=== PATIENT | female | born 1985 | race Caucasian/White ===

== ENCOUNTER 2020-09-30 22:35 | Inpatient (IN) | payer OTHER ==
[~2020-09-30] VITALS: Ht 167.6 cm; Wt 67.1 kg
--- NOTE | 2020-09-30 22:38 | NUR ---
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 Pt aaox4 breathing evenly and unlabored. Pt attached to monitor and pox.MD at bedside. Upon assessment, pt unable to find a comfortable position. Pt given blanket and call light within reach
--- NOTE | 2020-09-30 22:50 | NUR ---
URINE SPECIMEN COLLECTED AND SENT TO LAB.
--- NOTE | 2020-09-30 22:55 | NUR ---
blood obtained and sent to lab
[2020-09-30] MEDS ORDERED: ONDANSETRON HCL/PF 4 MG/2 ML VIAL ONE (22:57)
[2020-09-30] MEDS ORDERED: MORPHINE SULFATE INJ 4 MG/ML DISP.SYRIN ONE (22:58)
[2020-09-30] MEDS ORDERED: IV NS 0.9% 1,000 ML BAG IV ONE (23:00)
[2020-09-30] MEDS ORDERED: MORPHINE SULFATE INJ 2 MG/ML DISP.SYRIN IV ONE (23:00)
[2020-09-30] MEDS ORDERED: ONDANSETRON HCL/PF 4 MG/2 ML VIAL IVP ONE (23:00)
[2020-09-30 23:02] LABS: BASOPHILS # (AUTO) 0.1 K/uL (0.0-0.2); BASOPHILS % (AUTO) 0.7 % (0.0-2.0); EOSINOPHILS % (AUTO) 0.2 % (0.0-6.0); HEMATOCRIT 37 % (33-45); HEMOGLOBIN 12.4 g/dL (11.5-14.8); LYMPHOCYTES % (AUTO) 9.9 % (20.0-44.0); MEAN CORPUSCULAR HGB CONC 33 g/dl (31.0-36.0); MEAN CORPUSCULAR VOLUME 89 fL (82-100); MONOCYTES # (AUTO) 0.7 K/uL (0.1-1.30); MONOCYTES % (AUTO) 3.6 % (2.0-12.0); NEUTROPHILS % (AUTO) 85.6 % (43.0-81.0); PLATELET COUNT (AUTO) 254 K/uL (150-450); RED BLOOD CELL COUNT(AUTO) 4.18 MIL/uL (4.0-5.2); WHITE BLOOD COUNT (AUTO) 19.9 K/uL (4.3-11.0)
[2020-09-30 23:05] LABS: BILIRUBIN,URINE Negative (NEGATIVE); COLOR,URINE YELLOW (YELLOW); LEUKOCYTE ESTERASE ,URINE Negative (NEGATIVE); NITRITE, URINE Negative (NEGATIVE); PH,URINE 8.5 (5.0-8.0); PROTEIN,URINE Negative (NEGATIVE); UGLUCOSE Negative (NEGATIVE); UROBILINOGEN,URINE 0.2 EU/dL (0.2)
[2020-09-30] MEDS ORDERED: IOHEXOL-300 100 ML VIAL IV ONE (23:11)
[2020-09-30] MEDS ORDERED: CT SWABBABLE VALVE TRANS SET 1 EA INFUS.SET MC ONE (23:12)
[2020-09-30] MEDS ORDERED: IV NS 0.9% 250 ML IV ONE (23:12)
[2020-09-30 23:30] LABS: ALANINE AMINOTRANSFERASE 19 U/L (12-78); ALKALINE PHOSPHATASE 52 U/L (46-116); BILIRUBIN,DIRECT 0.1 mg/dL (0.0-0.2); BILIRUBIN,TOTAL 0.2 mg/dL (0.2-1.0); CALCIUM, SERUM 8.8 mg/dL (8.5-10.1); CARBON DIOXIDE 23 mmol/L (21-32); CHLORIDE 100 mmol/L (98-107); CREATININE 0.8 mg/dL (0.6-1.3); GLUCOSE 112 mg/dL (74-106); LIPASE 126 U/L (73-393); POTASSIUM 3.2 mmol/L (3.5-5.1); SODIUM SERUM 137 mmol/L (136-145); UREA NITROGEN, BLOOD 11 mg/dL (7-18)
[2020-09-30] MEDS ORDERED: PIPERACILLIN /TAZOBACTAM 3.375 G in IV D5W 50 ML IV ONE (23:30)
[2020-09-30] MEDS ORDERED: PIPERACILLIN /TAZOBACTAM 3.375 G VIAL IV ONE (23:37)
--- NOTE | 2020-09-30 23:44 | NUR ---
taken to ct
[2020-09-30 23:52] LABS: ASPARTATE AMINOTRANSFERASE 17 U/L (15-37)
--- NOTE | 2020-10-01 00:02 | NUR ---
returned from ct
[2020-10-01 00:10] LABS: BAND % (MANUAL) 11 % (0.0-5.0); BASOPHILS % (MANUAL) 0 % (0.0-2.0); EOSINOPHILS % (MANUAL) 4 % (0-4); LYMPHOCYTES % (MANUAL) 9 % (16-48); MONOCYTES % (MANUAL) 4 % (0-11.0); NEUTROPHILS % (MANUAL) 76 (42-76)
--- NOTE | 2020-10-01 00:25 | NUR ---
PAGED EPIC AND SURGERY.
[2020-10-01] MEDS ORDERED: FENTANYL PF 100MCG/2ML AMPUL ONE (00:38)
--- NOTE | 2020-10-01 00:45 | NUR ---
verbal order 10mg regalan iv
[2020-10-01] MEDS ORDERED: METOCLOPRAMIDE HCL 10 MG/2 ML VIAL ONE (00:48)
[2020-10-01] MEDS ORDERED: FENTANYL PF 100MCG/2ML AMPUL IV ONE (01:00)
[2020-10-01] MEDS ORDERED: METOCLOPRAMIDE HCL 10 MG/2 ML VIAL IV ONE (01:00)
--- NOTE | 2020-10-01 01:26 | NUR ---
lab at bedside
--- NOTE | 2020-10-01 02:34 | NUR ---
gave report to eliza dowd for charanjit
--- NOTE | 2020-10-01 03:15 | NUR ---
DIRECTOR OF HUMAN RESOURCES NOTES RECEIVED PT VIA TONIA TO [id number], ADMITTED FOR ACUTE APPENDICITIS. PT IS A/O X4, ABLE TO VERBALIZE ALL NEEDS. IV SITE ON R-AC INTACT, PATENT AND FLUSHES WELL. PT IS AMBULATORY, HOWEVER, BECAUSE OF ABD PAIN, SHE STATES SHE MAY NEED SOME ASSIST AMBULATING TO BR. INSTRUCTED TO USE CALL LIGHT FOR ASSISTANCE ANY TIME. ORIENTED TO STAFF AND ROOM. PT VERBALIZED UNDERSTANDING OF ALL INSTRUCTIONS. SAFETY MEASURES IN PLACE, BED IN LOWEST LOCKED POSITION, S/R UP X2, CALL LIGHT WITHIN EASY REACH.
[2020-10-01 03:27] VITALS: BP 97/60
[2020-10-01] MEDS ORDERED: MAG HYDROX/AL HYDROX/SIMETH 30 ML UDC PO PRN (06:00)
[2020-10-01] MEDS ORDERED: ACETAMINOPHEN 325 MG TABLET PO PRN (06:00)
[2020-10-01] MEDS ORDERED: MORPHINE SULFATE INJ 2 MG/ML DISP.SYRIN IV PRN ×2 (06:00)
[2020-10-01] MEDS ORDERED: ZOLPIDEM TARTRATE 5 MG TABLET PO PRN (06:00)
[2020-10-01] MEDS ORDERED: MAGNESIUM HYDROXIDE 30 ML UDC PO PRN (06:00)
[2020-10-01] MEDS ORDERED: IV D5/0.45 NACL 1,000 ML IV PRN (06:00)
[2020-10-01] MEDS ORDERED: Z GUARD REMEDY 2 OZ OINT TP PRN (06:00)
--- NOTE | 2020-10-01 06:17 | NUR ---
RN NOTES PT C/O 10/19 PAIN TO ABD. ORDERED FOR MORPHINE 4MG IV Q4H PRN. PT REFUSED THE WHOLE DOSE OF 4MG; 2MG WAS GIVEN PER PT'S REQUEST. 2MG WASTED AND WITNESSED BY ANOTHER RN. WILL ENDORSE TO NEXT SHIFT.
--- NOTE | 2020-10-01 07:00 | NUR ---
RN CLOSING NOTES PT RESTING IN BED, AWAKE, A/O X4. PT STATES HER ABD PAIN IS TOLERABLE AT THIS TIME. PT AMBULATES TO BR WITH STANDBY ASSIST PROVIDED. PT IN NO ACUTE DISTRESS. ENDORSED TO NEXT SHIFT NURSE.
[2020-10-01] MEDS: ONDANSETRON HCL/PF 4 MG/2 ML VIAL IVP PRN ×3 (07:24→20:43)
--- NOTE | 2020-10-01 07:30 | NUR ---
MS RN OPENING NOTES RECEIVED PATIENT IN BED, AWAKE, NOT IN ANY FORM OF ACUTE DISTRESS NOTED. ON ROOM AIR, NO SOB NOTED, IV ACCESS ON RIGHT AC G#20 WITH ONGOING IVF OF D5 1/2 NS 1L X 75CC/HR INFUSING WELL. NO C/O PAIN AT THIS TIME. SAFETY PRECAUTIONS IN PLACE: BED ON LOWEST LOCKED POSITION, SIDE RAILS UP X 2M CALL LIGHT WITHIN EASY REACH, KEPT ON NPO. WILL CONTINUE TO MONITOR ACCORDINGLY.
[2020-10-01] MEDS: PIPERACILLIN /TAZOBACTAM 3.375 G in IV D5W 100 ML IV SCH ×2 (07:34→12:14)
[2020-10-01 08:00] VITALS: BP 97/52
[2020-10-01] MEDS ORDERED: DULO20CA19 PO (08:46)
[2020-10-01] MEDS ORDERED: ACET-868 PO (08:46)
[2020-10-01] MEDS: POTASSIUM CL. PREMIX PERIPHER. 50 ML IV SCH ×4 (09:27→12:53)
[2020-10-01] MEDS ORDERED: POTASSIUM CHLORIDE 10 MEQ/50 ML PREMIXED IVPB FOR PERIPHERAL LINE IV SCH (10:00)
--- NOTE | 2020-10-01 10:50 | NUR ---
RN NOTES SEEN AND EXAMINED ON ROUNDS BY DR. JOHNSON WITH ORDES MADE AND CARRIED OUT. CONSENT FOR LAPAROSCOPIC APPENDECTOMY POSSIBLE OPEN EXPLORATORY LAPAROTOMY SECURED AND PLACED IN PATIENT'S CHART.
--- NOTE | 2020-10-01 11:20 | NUR ---
RN NOTES RECEIVED A CALL FROM O.R, REPORT GIVEN TO TAO SAM.
[2020-10-01] MEDS: MORPHINE SULFATE INJ 2 MG/ML DISP.SYRIN IV PRN ×2 (13:11→20:43)
[2020-10-01] MEDS ORDERED: ANESTHESIA TRAY IN PYXIS 1 EA TRAY MC ONE (13:30)
[2020-10-01] MEDS ORDERED: BUPIVACAINE MPF 0.5% W/EPI INJ 30 ML VIAL ONE (13:31)
[2020-10-01] MEDS ORDERED: LIDOCAINE 1% INJ 50 ML MDV IJ ONE (13:31)
[2020-10-01] MEDS ORDERED: MIDAZOLAM HCL 2 MG/2ML VIAL ONE (15:48)
[2020-10-01] MEDS ORDERED: HYDROMORPHONE INJ 2 MG/ML DISP.SYRIN ONE (15:48)
[2020-10-01] MEDS ORDERED: ROCURONIUM BROMIDE 50 MG/5 ML ONE (15:49)
--- NOTE | 2020-10-01 15:54 | NUR ---
RN NOTES PATIENT WAS PICKED UP BY 2 [employer]M PLACING SUPERVISOR. LEFT IN STABLE CONDITIN, VITAL SIGSN WITHIN NORMAL RANGE.
[2020-10-01] MEDS ORDERED: BACITRACIN OPHTH OINT 3.5 GM TUBE ONE (16:47)
--- NOTE | 2020-10-01 17:35 | NUR ---
RN NOTES RECEIVED PATIENT VIA BED, FOR O.R, PATIENT IS AWQKE, A&O X 4, ON ROOM AIR TOLERATING WELL. NOT IN ANY FORM OF ACUTE DISTRESS NOTED, VITAL SIGNS TAKEN AND RECORDED. NO COMPLAINTS OF PAIN AT THIS TIME. IV ACCESS ON RIGHT AC G#20 WITH ONGOING IVF OF D5 1/2 NS 1L X 75CC/HR INFUSING WELL. SAFETY PRECAUTIONS IN PLACE: BED ON LOWEST LOCKED POSITION, SIDE RAILS UP X 2, CALL LIGHT WITHIN EASY REACH. WILL CONTINUE TO MONITOR ACCORDINGLY.
[2020-10-01] MEDS ORDERED: IV LR 1000 ML 1,000 ML IV ONE (18:30)
--- NOTE | 2020-10-01 18:40 | NUR ---
MS RN CLOSING NOTES PATIENT IN BED, AWAKE, NOT IN ANY FORM OF ACUTE DISTRESS NOTED. ON ROOM AIR, NO SOB NOTED, IV ACCESS ON RIGHT AC G#20 WITH ONGOING IVF OF D5 1/2 NS 1L X 75CC/HR INFUSING WELL. NO C/O PAIN AT THIS TIME. SAFETY PRECAUTIONS IN PLACE: BED ON LOWEST LOCKED POSITION, SIDE RAILS UP X 2M CALL LIGHT WITHIN EASY REACH, INSTRUCTED ON CLEAR LIQUIDS DIET. ALL NEEDS ATTENDED WILL CONTINUE TO MONITOR Addendum: 10/01/20 at 1841 by ZULEYMA MCKENNA RN ENDORSED TO NEXT SHIFT NURSE FOR FUENTES.
[2020-10-01] MEDS: ACETAMINOPHEN 325 MG TABLET PO SCH (18:42)
[2020-10-01] MEDS: GABAPENTIN 100 MG CAPSULE PO SCH (18:43)
[2020-10-01 18:44] VITALS: BP 110/52
[2020-10-01] MEDS ORDERED: IBUPROFEN 800 MG TABLET PO SCH (19:00)
--- NOTE | 2020-10-01 19:25 | NUR ---
RN OPENING NOTES PT RESTING IN BED, A/O X4, STATES SHE'S FEELING MUCH BETTER AFTER HER APPENDECTOMY PROCEDURE EARLIER TODAY. SHE DENIES ANY PAIN OR DISCOMFORT AT THIS TIME. HOWEVER, SHE REQUESTS TO HAVE A BENADRYL ORDER BECAUSE SHE HAS "A LOT OF FOOD ALLERGIES" AND SOME IV FLUIDS SHE HAD EARLIER THAT HAS D5, CONTAIN CORN, AND SHE FEELS SHE MAY HAVE A REACTION. DR. RAMOS MADE AWARE, LEFT A MESSAGE AND AWAITING FOR ORDERS. PT IS IN NO DISTRESS. NO SOB. AT BEDSIDE AT THIS TIME. WILL CONTINUE TO MONITOR.
--- NOTE | 2020-10-01 19:50 | NUR ---
RECEIVED ORDER FOR BENADRYL 25MG PO Q6H PRN
[2020-10-01 20:00] VITALS: BP 98/46
[2020-10-01] MEDS ORDERED: diphenhydrAMINE HCL ELIX 25 MG/10 ML UDC PO PRN (20:30)
[2020-10-01] MEDS: PIPERACILLIN /TAZOBACTAM 3.375 G in IV NS 0.9% 100 ML IV SCH (21:31)
[2020-10-01] MEDS ORDERED: diphenhydrAMINE HCL 25 MG CAPSULE PO PRN (22:30)
[2020-10-01] MEDS: IBUPROFEN 400 MG TABLET PO SCH (22:43)
[2020-10-02] MEDS: GABAPENTIN 100 MG CAPSULE PO SCH ×2 (02:14→09:48)
[2020-10-02] MEDS: ACETAMINOPHEN 325 MG TABLET PO SCH ×2 (02:14→09:48)
[2020-10-02] MEDS: PIPERACILLIN /TAZOBACTAM 3.375 G in IV NS 0.9% 100 ML IV SCH ×2 (04:58→13:00)
[2020-10-02] MEDS: IBUPROFEN 400 MG TABLET PO SCH ×2 (05:38→11:12)
[2020-10-02 06:41] LABS: BASOPHILS % (AUTO) 0.2 % (0.0-2.0); HEMATOCRIT 31 % (33-45); HEMOGLOBIN 10.5 g/dL (11.5-14.8); LYMPHOCYTES # (AUTO) 1.2 K/uL (0.8-4.8); LYMPHOCYTES % (AUTO) 11.6 % (20.0-44.0); MEAN CORPUSCULAR HGB CONC 34 g/dl (31.0-36.0); MEAN CORPUSCULAR VOLUME 91 fL (82-100); MONOCYTES # (AUTO) 0.4 K/uL (0.1-1.30); MONOCYTES % (AUTO) 4.3 % (2.0-12.0); NEUTROPHILS # (AUTO) 8.5 K/uL (1.8-8.9); NEUTROPHILS % (AUTO) 83.9 % (43.0-81.0); PLATELET COUNT (AUTO) 200 K/uL (150-450); RED BLOOD CELL COUNT(AUTO) 3.43 MIL/uL (4.0-5.2); WHITE BLOOD COUNT (AUTO) 10.2 K/uL (4.3-11.0)
[2020-10-02 07:07] LABS: CALCIUM, SERUM 8.5 mg/dL (8.5-10.1); CREATININE 0.8 mg/dL (0.6-1.3); MAGNESIUM 2.3 mg/dL (1.8-2.4); PHOSPHORUS 2.8 mg/dL (2.5-4.9); POTASSIUM 3.7 mmol/L (3.5-5.1)
--- NOTE | 2020-10-02 07:08 | NUR ---
RN CLOSING NOTES PT RESTING IN BED, A/OX4, DENIES PAIN OR DISCOMFORT AT THIS TIME. RESPIRATIONS EVEN AND UNLABORED, ON ROOM AIR. IV SITE ON R-AC INTACT, PATENT AND FLUSHES WELL. ASSISTED TO BR NEEDED. PT SLEPT INTERMITTENTLY DURING THE NIGHT. NO ACUTE DISTRESS NOTED. SAFETY MEASURES MAINTAINED, BED IN LOWEST LOCKED POSITION, S/R UP X2, CALL LIGHT WITHIN REACH. ENDORSED TO NEXT SHIFT NURSE.
[2020-10-02 07:18] LABS: THYROID STIMULATING HORMONE 1.001 uIU/mL (0.358-3.74)
--- NOTE | 2020-10-02 07:40 | NUR ---
MS RN CLOSING NOTES RECEIVED PATIENT IN BED, AWAKE, NOT IN ANY FORM OF ACUTE DISTRESS NOTED. ON ROOM AIR, NO SOB NOTED, IV ACCESS ON RIGHT AC G#20 WITH ONGOING IVF OF D5 1/2 NS 1L X 75CC/HR INFUSING WELL. NO C/O PAIN AT THIS TIME. ADVANCED DIET TO SOFT DIET ORDERED. SAFETY PRECAUTIONS IN PLACE: BED ON LOWEST LOCKED POSITION, SIDE RAILS UP X 2M CALL LIGHT WITHIN EASY REACH. WILL CONTINUE TO MONITOR ACCORDINGLY. Addendum: 10/02/20 at 0751 by ZULEYMA MCKENNA RN ABOVE IS MS BURGER OPENING NOTES
[2020-10-02 08:00] VITALS: BP 100/56
[2020-10-02] MEDS ORDERED: IBUP-1953 PO (12:16)
[2020-10-02] MEDS ORDERED: GABA100C PO (12:16)
--- NOTE | 2020-10-02 14:50 | NUR ---
MS APPLIQUE SEWER NOTES DISCHARGED PATIENT IN STABLE CONDITION, VITAL SIGNS WITHIN NORMAL LIMITS. NO C/O PAIN UPON DISCHARGE. HOME MEDICATIONS TEACHINGS AND HEALTH TEACHINGS PROVIDED TO PATIENT, INSTRUCTED TO SCHEDULE FOLLOW UP WITH PRIMARY CARE PHYSICIAN AND WITH DR. JOHNSON, PHONE NUMBER PROVIDED, PATIENT VERBALIZED UNDERSTANDING OF INSTRUCTIONS GIVEN. IV ACCESS REMOVED, ARMBAND REMOVED. PATIENT LEFT UNIT WITH KORY AND RYAN Ramirez CHARGE NURSE AND MD AWARE OF DISCHARGE.
== END 2020-10-02 14:50 | disposition home or self-care (01) | DRG 854 ==
LOC: ER 22:39 → TRANSITION 10-01 01:36 → MED 10-01 01:38
PROVIDERS: ADMIT Internal Medicine
PROC: 0DTJ4ZZ Resection of Appendix, Percutaneous Endoscopic Approach (ICD-10-PCS; principal; 2020-10-01)
DX: A41.9 Sepsis, unspecified organism (principal); K35.80 Unspecified acute appendicitis; E87.2 Acidosis; Z90.49 Acquired absence of other specified parts of digestive tract; Z20.822 Contact with and (suspected) exposure to COVID-19; E87.6 Hypokalemia
CPT/HCPCS: 36415; 70450-TC; 80048-TC; 80061-TC; 80076-TC; 83605-TC; 83690-TC; 83735-TC; 83880; 84100-TC; 84132-TC; 84443-TC; 84703-TC; 85025-TC; 87040-TC; 87081-TC; C9803; G0378; J0330; J1170; J1885; J2250; J2270; J2405; J2543; J2704; J2765; J3010; J3480; J3490; J7030; J7050; J7060; J7120; Q0163; Q9967